=== PATIENT | female | born 1985 | race Caucasian/White ===

== ENCOUNTER 2020-11-01 15:56 | Emergency (ER) | payer MEDICARE, OTHER ==
[~2020-11-01] VITALS: Ht 157.5 cm; Wt 90.9 kg
[~2020-11-01 15:56] MED LIST: BUSP5TAB20 PO; DIPH25 PO; LEVE500T53 PO; LURA40TA2 PO; METF-960 PO
[2020-11-01] MEDS ORDERED: LevETIRAcetam 500 MG TABLET PO ONE (17:15)
[2020-11-01 17:19] LABS: BASOPHILS % (AUTO) 1.1 % (0.0-2.0); EOSINOPHILS % (AUTO) 0.5 % (1.0-6.0); HEMATOCRIT 42.5 % (36-46); HEMOGLOBIN 14.3 g/dL (12.0-16.0); LYMPHOCYTES # (AUTO) 2.9 K/uL (1.0-4.8); LYMPHOCYTES % (AUTO) 34.4 % (22.0-44.0); MEAN CORPUSCULAR HEMOGLOBIN 31.1 pg (26.0-34.0); MEAN CORPUSCULAR HGB CONC 33.8 G/dL (31.0-37.0); MEAN CORPUSCULAR VOLUME 92 fL (80-100); MONOCYTES # (AUTO) 0.4 K/uL (0.1-1.0); MONOCYTES % (AUTO) 5.3 % (2.0-9.0); NEUTROPHILS % (AUTO) 58.7 % (40.0-70.0); PLATELET COUNT (AUTO) 235 K/uL (150-450); RED BLOOD CELL COUNT(AUTO) 4.62 MIL/uL (4.00-5.20); RED CELL DISTRIBUTION WIDTH 12.5 % (11.5-14.5)
[2020-11-01 17:29] LABS: ANION GAP 14 mmol/L (8-16); CALCIUM, TOTAL 8.7 mg/dL (8.8-10.5); CARBON DIOXIDE 20 mmol/L (22-29); CHLORIDE 106 mmol/L (98-107); CREATININE 0.75 mg/dL (0.60-1.30); GLOMERULAR FILTR. RATE CALC > 60 mL/min (>60); GLUCOSE,RANDOM 144 mg/dL (70-110); POTASSIUM 3.1 mmol/L (3.5-5.1); SODIUM SERUM 140 mmol/L (136-145); UREA NITROGEN, BLOOD 11 mg/dL (7-18)
[2020-11-01 17:40] LABS: ALANINE AMINOTRANSFERASE 32 U/L (12-78); ALBUMIN 3.4 g/dL (3.4-5.0); ALKALINE PHOSPHATASE 83 U/L (46-116); ASPARTATE AMINOTRANSFERASE 19 U/L (15-37); BILIRUBIN,TOTAL 0.2 mg/dL (0.1-1.0); HCG,QUANTITATIVE < 1 mIU/mL (0-6); TOTAL PROTEIN, SERUM 6.7 g/dL (6.4-8.2)
[2020-11-01] MEDS ORDERED: POTASSIUM CHLORIDE 20 MEQ ER TABLET PO ONE (18:30)
[2020-11-01 19:10] VITALS: BP 137/78
== END 2020-11-01 19:16 | disposition home or self-care (01) ==
LOC: EMS 15:59
DX: F32.9 Major depressive disorder, single episode, unspecified (principal); F41.9 Anxiety disorder, unspecified; I10 Essential (primary) hypertension; F17.210 Nicotine dependence, cigarettes, uncomplicated; Z79.84 Long term (current) use of oral hypoglycemic drugs; Z88.5 Allergy status to narcotic agent; Z88.8 Allergy status to other drugs, medicaments and biological substances
CPT/HCPCS: 36415; 80053; 84702; 85025; 99284; G0480

== ENCOUNTER 2021-11-05 18:16 | Emergency (ER) | payer MEDICARE, OTHER ==
[~2021-11-05] VITALS: Ht 157.5 cm; Wt 113.6 kg
[~2021-11-05 18:16] MED LIST changes: +LEVE500T20 PO; -LEVE500T53 PO; +METF-1211 PO; -METF-960 PO
[2021-11-05 20:01] LABS: BASOPHILS % (AUTO) 0.3 % (0.0-2.0); EOSINOPHILS % (AUTO) 0.4 % (1.0-6.0); HEMATOCRIT 39.2 % (36-46); HEMOGLOBIN 13.6 g/dL (12.0-16.0); LYMPHOCYTES # (AUTO) 3.2 K/uL (1.0-4.8); LYMPHOCYTES % (AUTO) 37.5 % (22.0-44.0); MEAN CORPUSCULAR HEMOGLOBIN 30.1 pg (26.0-34.0); MEAN CORPUSCULAR HGB CONC 34.6 G/dL (31.0-37.0); MEAN CORPUSCULAR VOLUME 87 fL (80-100); MONOCYTES # (AUTO) 0.5 K/uL (0.1-1.0); MONOCYTES % (AUTO) 6.3 % (2.0-9.0); NEUTROPHILS # (AUTO) 4.7 K/uL (1.8-7.7); NEUTROPHILS % (AUTO) 55.5 % (40.0-70.0); PLATELET COUNT (AUTO) 258 K/uL (150-450); RED BLOOD CELL COUNT(AUTO) 4.51 MIL/uL (4.00-5.20); RED CELL DISTRIBUTION WIDTH 13.1 % (11.5-14.5)
[2021-11-05 20:05] LABS: ANION GAP 11 mmol/L (8-16); CALCIUM, TOTAL 8.9 mg/dL (8.8-10.5); CARBON DIOXIDE 24 mmol/L (22-29); CHLORIDE 107 mmol/L (98-107); GLUCOSE,RANDOM 104 mg/dL (70-110); POTASSIUM 3.3 mmol/L (3.5-5.1); SODIUM SERUM 142 mmol/L (136-145); UREA NITROGEN, BLOOD 15 mg/dL (7-18)
[2021-11-05 20:07] LABS: GLOMERULAR FILTR. RATE CALC > 60 mL/min (>60)
[2021-11-05 20:17] LABS: B-TYPE NATRIURETIC PEPTIDE 8 pg/mL (0-100)
[2021-11-05 20:27] LABS: APPEARANCE,URINE HAZY (CLEAR); BILIRUBIN,URINE NEGATIVE (NEGATIVE); GLUCOSE, URINE (UA) NEGATIVE (NEGATIVE); KETONES,URINE NEGATIVE (NEGATIVE); LEUKOCYTE ESTERASE ,URINE SMALL (NEGATIVE); NITRATE,URINE NEGATIVE (NEGATIVE); OCCULT BLOOD,URINE SMALL (NEGATIVE); PH,URINE 6.5 (5.0-8.0); PROTEIN,URINE TRACE mg/dL (NEGATIVE); SPECIFIC GRAVITIY, URINE 1.021 (1.003-1.030)
[2021-11-05 20:30] LABS: ALANINE AMINOTRANSFERASE 57 U/L (12-78); ALBUMIN 3.9 g/dL (3.4-5.0); ALKALINE PHOSPHATASE 53 U/L (46-116); ASPARTATE AMINOTRANSFERASE 27 U/L (15-37); BILIRUBIN,TOTAL 0.5 mg/dL (0.1-1.0); CREATINE KINASE, TOTAL ONLY 104 U/L (26-192); TOTAL PROTEIN, SERUM 6.8 g/dL (6.4-8.2)
[2021-11-05 20:41] LABS: BACTERIA,URINE Rare /HPF (None Seen); RBC,URINE 0-2 /HPF (0-2); SQUAMOUS EPITHELIAL CELL,UR Many /LPF (None Seen); WBC,URINE 0-2 /HPF (0-5)
[2021-11-05 22:37] LABS: COVID AG,FIA SOURCE NASAL SWAB
[2021-11-05 22:55] VITALS: BP 135/74
== END 2021-11-06 00:21 | disposition home or self-care (01) ==
LOC: EMS 18:27
DX: F41.9 Anxiety disorder, unspecified (principal); R06.00 Dyspnea, unspecified; I10 Essential (primary) hypertension; F31.9 Bipolar disorder, unspecified; F17.210 Nicotine dependence, cigarettes, uncomplicated; Z20.822 Contact with and (suspected) exposure to COVID-19; Z88.1 Allergy status to other antibiotic agents; Z79.84 Long term (current) use of oral hypoglycemic drugs; Z79.899 Other long term (current) drug therapy
CPT/HCPCS: 71045; 80053; 81001; 82550; 82962; 83880; 84484; 84703; 85025; 85379; 93005; 93971; 99285; 36415-L1; 36415-TC

== ENCOUNTER 2022-01-21 02:50 | Inpatient (IN) | payer MEDICARE, MEDICAID ==
[~2022-01-21] VITALS: Ht 165.1 cm; Wt 109.1 kg
[2022-01-21 04:16] LABS: BASOPHILS % (AUTO) 1.1 % (0.0-2.0); EOSINOPHILS % (AUTO) 0.4 % (1.0-6.0); HEMATOCRIT 42.1 % (36-46); HEMOGLOBIN 14.4 g/dL (12.0-16.0); LYMPHOCYTES # (AUTO) 2.2 K/uL (1.0-4.8); LYMPHOCYTES % (AUTO) 22.4 % (22.0-44.0); MEAN CORPUSCULAR HEMOGLOBIN 30.7 pg (26.0-34.0); MEAN CORPUSCULAR HGB CONC 34.3 G/dL (31.0-37.0); MEAN CORPUSCULAR VOLUME 90 fL (80-100); MONOCYTES # (AUTO) 0.6 K/uL (0.1-1.0); MONOCYTES % (AUTO) 6.4 % (2.0-9.0); NEUTROPHILS # (AUTO) 6.8 K/uL (1.8-7.7); NEUTROPHILS % (AUTO) 69.7 % (40.0-70.0); PLATELET COUNT (AUTO) 207 K/uL (150-450); RED CELL DISTRIBUTION WIDTH 13.6 % (11.5-14.5)
[2022-01-21 04:28] LABS: ANION GAP 10 mmol/L (8-16); CALCIUM, TOTAL 9.2 mg/dL (8.8-10.5); CARBON DIOXIDE 26 mmol/L (22-29); CHLORIDE 101 mmol/L (98-107); CREATININE 1.08 mg/dL (0.60-1.30); GLUCOSE,RANDOM 132 mg/dL (70-110); POTASSIUM 3.1 mmol/L (3.5-5.1); SODIUM SERUM 137 mmol/L (136-145); UREA NITROGEN, BLOOD 14 mg/dL (7-18)
[2022-01-21 04:31] LABS: GLOMERULAR FILTR. RATE CALC 57 mL/min (>60)
[2022-01-21 04:39] LABS: ALANINE AMINOTRANSFERASE 167 U/L (12-78); ALBUMIN 4.2 g/dL (3.4-5.0); ALKALINE PHOSPHATASE 61 U/L (46-116); ASPARTATE AMINOTRANSFERASE 74 U/L (15-37); BILIRUBIN,TOTAL 0.8 mg/dL (0.1-1.0); HCG,QUANTITATIVE < 1 mIU/mL (0-6); TOTAL PROTEIN, SERUM 7.2 g/dL (6.4-8.2)
[2022-01-21 04:48] LABS: ACETAMINOPHEN < 2 mcg/mL (10-30); SALICYLATE 1.4 mg/dL (2.8-20.0)
[2022-01-21 04:52] LABS: COVID AG,FIA SOURCE NASAL SWAB
[2022-01-21] MEDS ORDERED: ACET-3385 PO (05:10)
[2022-01-21] MEDS ORDERED: ATOR40TA28 PO (05:10)
[2022-01-21] MEDS ORDERED: LURA40TA2 PO (05:10)
[2022-01-21] MEDS ORDERED: FURO20 PO (05:10)
[2022-01-21] MEDS ORDERED: TOPI100T37 PO (05:10)
[2022-01-21] MEDS ORDERED: POTA8TAB71 PO (05:10)
[2022-01-21] MEDS ORDERED: MAGNESIUM SULFATE 2 GM, MVI, ADULT NO.1 WITH VIT K 10 ML, THIAMINE 100 MG, FOLIC ACID 1... IV ONE ×5 (05:15)
[2022-01-21] MEDS ORDERED: POTASSIUM CHLORIDE 20 MEQ ER TABLET PO ONE (05:15)
[2022-01-21] MEDS ORDERED: ZOLPIDEM TARTRATE 10 MG TABLET PO PRN (07:45)
[2022-01-21] MEDS ORDERED: HALOPERIDOL 5 MG TABLET PO PRN (07:45)
[2022-01-21 09:05] VITALS: BP 134/88
[2022-01-21] MEDS: LORazepam 2 MG TABLET PO PRN (10:25)
[2022-01-21] MEDS: LURASIDONE HCL 40 MG TABLET PO SCH (16:01)
[2022-01-21] MEDS: BusPIRone HCL 5 MG TABLET PO SCH (16:01)
[2022-01-21] MEDS: TOPIRAMATE 100 MG TABLET PO SCH (16:01)
[2022-01-21] MEDS ORDERED: TOPIRAMATE 100 MG TABLET PO SCH (17:00)
[2022-01-21] MEDS: MetFORMIN HCL 500 MG TABLET PO SCH (17:58)
[2022-01-21] MEDS: TRIAMCINOLONE 0.1% 15 GM CREAM TP SCH (17:58)
[2022-01-21] MEDS ORDERED: PETROLATUM,WHITE 28 GM JELLY TP PRN (19:30)
[2022-01-21] MEDS ORDERED: LOPERAMIDE HCL 2 MG CAPSULE PO PRN (19:30)
[2022-01-21] MEDS ORDERED: DOCUSATE SODIUM 100 MG CAPSULE PO PRN (19:30)
[2022-01-21] MEDS ORDERED: CloNIDine HCL 0.1 MG TABLET PO PRN (19:30)
[2022-01-21] MEDS ORDERED: BACITRACIN 28 GM OINTMENT TP PRN (19:30)
[2022-01-21] MEDS ORDERED: IBUPROFEN 600 MG TABLET PO PRN (19:30)
[2022-01-21] MEDS ORDERED: MAG HYDROX/AL HYDROX/SIMETH ES 30 ML SUSPENSION UDCUP PO PRN (19:30)
[2022-01-21] MEDS ORDERED: OMEPRAZOLE 20 MG CAPSULE PO PRN (19:30)
[2022-01-21] MEDS ORDERED: ACETAMINOPHEN 325 MG TABLET PO PRN (19:30)
[2022-01-21] MEDS ORDERED: MAGNESIUM HYDROXIDE SUSPENSION 30 ML UDCUP PO PRN (19:30)
[2022-01-21] MEDS: NYSTATIN 15 GM POWDER BOTTLE TP SCH (19:30)
[2022-01-21] MEDS ORDERED: ONDANSETRON HCL 4 MG TABLET PO PRN (19:30)
[2022-01-21] MEDS ORDERED: BENZOCAINE/MENTHOL LOZENGE PO PRN (19:30)
[2022-01-21] MEDS ORDERED: ALBUTEROL SULFATE HFA 90 MCG/PUFF 8 GM INHALER IH PRN (19:30)
[2022-01-21] MEDS: LevETIRAcetam 500 MG TABLET PO SCH (20:13)
[2022-01-21] MEDS: ATORVASTATIN CALCIUM 40 MG TABLET PO SCH (20:24)
[2022-01-22 05:41] LABS: GLUCOMETER DEV NAME(LOC) 3E.I 2; GLUCOSE,POINT OF CARE 141 MG/DL (70-110)
[2022-01-22] MEDS: MetFORMIN HCL 500 MG TABLET PO SCH ×2 (06:41→16:50)
[2022-01-22 07:07] LABS: ANION GAP 13 mmol/L (8-16); CARBON DIOXIDE 22 mmol/L (22-29); CHLORIDE 105 mmol/L (98-107); CREATININE 0.75 mg/dL (0.60-1.30); GLUCOSE,RANDOM 147 mg/dL (70-110); POTASSIUM 3.8 mmol/L (3.5-5.1); SODIUM SERUM 140 mmol/L (136-145); UREA NITROGEN, BLOOD 15 mg/dL (7-18)
[2022-01-22 07:08] LABS: ALANINE AMINOTRANSFERASE 118 U/L (12-78); ALKALINE PHOSPHATASE 59 U/L (46-116); ASPARTATE AMINOTRANSFERASE 51 U/L (15-37); BILIRUBIN,TOTAL 0.3 mg/dL (0.1-1.0); CALCIUM, TOTAL 8.7 mg/dL (8.8-10.5); TOTAL PROTEIN, SERUM 5.6 g/dL (6.4-8.2)
[2022-01-22 07:10] LABS: GLOMERULAR FILTR. RATE CALC > 60 mL/min (>60)
[2022-01-22 08:00] VITALS: BP 103/56
[2022-01-22] MEDS: NYSTATIN 15 GM POWDER BOTTLE TP SCH ×2 (09:00→17:00)
[2022-01-22] MEDS: TRIAMCINOLONE 0.1% 15 GM CREAM TP SCH ×2 (09:00→17:00)
[2022-01-22] MEDS: FUROSEMIDE 20 MG TABLET PO SCH (10:06)
[2022-01-22] MEDS: POTASSIUM CHLORIDE 8 MEQ ER TABLET PO SCH (10:06)
[2022-01-22] MEDS: TOPIRAMATE 100 MG TABLET PO SCH ×2 (10:06→16:50)
[2022-01-22] MEDS: LevETIRAcetam 500 MG TABLET PO SCH ×2 (10:06→16:49)
[2022-01-22] MEDS: BusPIRone HCL 5 MG TABLET PO SCH ×2 (10:06→16:49)
[2022-01-22 16:00] VITALS: BP 121/78
[2022-01-22] MEDS: LURASIDONE HCL 40 MG TABLET PO SCH (16:50)
[2022-01-22 16:56] LABS: GLUCOMETER DEV NAME(LOC) 3EX.2; GLUCOSE,POINT OF CARE 116 MG/DL (70-110)
[2022-01-22] MEDS: ATORVASTATIN CALCIUM 40 MG TABLET PO SCH (20:14)
[2022-01-23 05:36] LABS: GLUCOMETER DEV NAME(LOC) 3E.I 2; GLUCOSE,POINT OF CARE 134 MG/DL (70-110)
[2022-01-23] MEDS: MetFORMIN HCL 500 MG TABLET PO SCH ×2 (06:48→16:36)
[2022-01-23 08:00] VITALS: BP 111/60
[2022-01-23] MEDS: LevETIRAcetam 500 MG TABLET PO SCH ×2 (08:48→16:37)
[2022-01-23] MEDS: POTASSIUM CHLORIDE 8 MEQ ER TABLET PO SCH (08:48)
[2022-01-23] MEDS: TOPIRAMATE 100 MG TABLET PO SCH ×2 (08:48→16:36)
[2022-01-23] MEDS: FUROSEMIDE 20 MG TABLET PO SCH (08:48)
[2022-01-23] MEDS: BusPIRone HCL 5 MG TABLET PO SCH ×2 (08:49→16:36)
[2022-01-23] MEDS: LORazepam 2 MG TABLET PO PRN ×2 (11:04→20:57)
[2022-01-23] MEDS: TRIAMCINOLONE 0.1% 15 GM CREAM TP SCH ×2 (11:06→18:04)
[2022-01-23] MEDS: NYSTATIN 15 GM POWDER BOTTLE TP SCH ×2 (11:06→18:04)
[2022-01-23 16:15] VITALS: BP 133/94
[2022-01-23 16:21] LABS: GLUCOMETER DEV NAME(LOC) 3E.I 2; GLUCOSE,POINT OF CARE 124 MG/DL (70-110)
[2022-01-23] MEDS: LURASIDONE HCL 40 MG TABLET PO SCH (18:04)
[2022-01-23] MEDS: ATORVASTATIN CALCIUM 40 MG TABLET PO SCH (20:57)
[2022-01-24 05:57] LABS: GLUCOMETER DEV NAME(LOC) 3E.I 2; GLUCOSE,POINT OF CARE 195 MG/DL (70-110)
[2022-01-24] MEDS: MetFORMIN HCL 500 MG TABLET PO SCH ×2 (06:35→16:34)
[2022-01-24 07:59] LABS: CHOL/HDL RATIO 2.5 (3.9-5.7)
[2022-01-24 08:15] VITALS: BP 140/85
[2022-01-24] MEDS: BusPIRone HCL 5 MG TABLET PO SCH ×2 (09:34→16:33)
[2022-01-24] MEDS: TOPIRAMATE 100 MG TABLET PO SCH ×2 (09:34→16:34)
[2022-01-24] MEDS: FUROSEMIDE 20 MG TABLET PO SCH (09:34)
[2022-01-24] MEDS: LevETIRAcetam 500 MG TABLET PO SCH ×2 (09:34→16:33)
[2022-01-24] MEDS: POTASSIUM CHLORIDE 8 MEQ ER TABLET PO SCH (09:34)
[2022-01-24] MEDS: NYSTATIN 15 GM POWDER BOTTLE TP SCH ×2 (09:35→16:34)
[2022-01-24] MEDS: TRIAMCINOLONE 0.1% 15 GM CREAM TP SCH ×2 (09:35→16:34)
[2022-01-24] MEDS ORDERED: LURA40TA2 PO (16:09)
[2022-01-24] MEDS ORDERED: BUSP5TAB20 PO (16:09)
[2022-01-24 16:31] VITALS: BP 126/89
[2022-01-24] MEDS: LURASIDONE HCL 40 MG TABLET PO SCH (16:34)
[2022-01-24 16:50] LABS: GLUCOMETER DEV NAME(LOC) 3E.I 2; GLUCOSE,POINT OF CARE 115 MG/DL (70-110)
== END 2022-01-24 17:22 | disposition home or self-care (01) | DRG 885 ==
LOC: EMS 02:51 → 3EI 05:32 → 3EX 08:45
PROVIDERS: ADMIT Psychiatry & Neurology Psychiatry; ATTEND Psychiatry & Neurology Psychiatry
DX: F31.30 Bipolar disorder, current episode depressed, mild or moderate severity, unspecified (principal); Z68.41 Body mass index [BMI] 40.0-44.9, adult; E11.9 Type 2 diabetes mellitus without complications; E78.5 Hyperlipidemia, unspecified; F43.10 Post-traumatic stress disorder, unspecified; I10 Essential (primary) hypertension; T50.902A Poisoning by unspecified drugs, medicaments and biological substances, intentional self-harm, initial encounter; Z87.891 Personal history of nicotine dependence; E66.9 Obesity, unspecified; E87.6 Hypokalemia; K59.00 Constipation, unspecified; G47.00 Insomnia, unspecified; F41.9 Anxiety disorder, unspecified; K21.9 Gastro-esophageal reflux disease without esophagitis; Z20.822 Contact with and (suspected) exposure to COVID-19; Z79.899 Other long term (current) drug therapy; Z88.8 Allergy status to other drugs, medicaments and biological substances
CPT/HCPCS: 80053; 80061; 82962; 83735; 84702; 85025; 93005; 99285; G0378; G0480; G0481; G0482; J3411; J3475; J3490; J7030

== ENCOUNTER 2023-05-29 22:21 | Emergency (ER) | payer MEDICARE, OTHER ==
[~2023-05-29] VITALS: Ht 157.5 cm; Wt 115.0 kg
[~2023-05-29 22:21] MED LIST changes: -DIPH25 PO; -LEVE500T20 PO; -METF-1211 PO
[2023-05-29 23:33] VITALS: TEMP 98.4
[2023-05-30] MEDS ORDERED: ONDANSETRON HCL 4 MG/2 ML VIAL IVP ONE (00:15)
[2023-05-30] MEDS ORDERED: KETOROLAC TROMETHAMINE 30 MG/ML VIAL IVP ONE (00:15)
[2023-05-30] MEDS ORDERED: SODIUM CHLORIDE 0.9% 1,000 ML IV ONE (00:15)
[2023-05-30] MEDS ORDERED: KETOROLAC TROMETHAMINE 15 MG/ML VIAL IVP ONE (00:15)
[2023-05-30] MEDS ORDERED: MAG HYDROX/ALUMINUM HYD/SIMETH 30 ML SUSPENSION UDCUP PO ONE (00:15)
[2023-05-30] MEDS ORDERED: FAMOTIDINE 20 MG/2 ML VIAL IVP ONE (00:15)
[2023-05-30 00:52] LABS: COVID AG,FIA SOURCE NASAL SWAB
[2023-05-30 00:59] LABS: APPEARANCE,URINE HAZY (CLEAR); BILIRUBIN,URINE NEGATIVE (NEGATIVE); COLOR,URINE YELLOW (YELLOW); GLUCOSE, URINE (UA) 70-100 mg/dL (NEGATIVE); KETONES,URINE TRACE mg/dL (NEGATIVE); LEUKOCYTE ESTERASE ,URINE MODERATE (NEGATIVE); NITRATE,URINE POSITIVE (NEGATIVE); OCCULT BLOOD,URINE NEGATIVE (NEGATIVE); PROTEIN,URINE 100-200,SEE CONFIRM mg/dL (NEGATIVE); SPECIFIC GRAVITIY, URINE 1.034 (1.003-1.030)
[2023-05-30 01:14] LABS: SARS-COV2 (COVID) ANTIGEN,FIA Negative (Negative)
[2023-05-30 01:15] LABS: INFLUENZA TYPE A NEGATIVE FOR TYPE A (NEGATIVE); INFLUENZA TYPE B NEGATIVE FOR TYPE B (NEGATIVE)
[2023-05-30 01:21] LABS: SULFOSALICYLIC ACID,URINE 1+ (Negative)
[2023-05-30 01:22] LABS: BACTERIA,URINE Many /HPF (None Seen); RBC,URINE None Seen /HPF (0-2); SQUAMOUS EPITHELIAL CELL,UR Many /LPF (None Seen)
[2023-05-30] MEDS ORDERED: NITROFURANTOIN MONOHYD/M-CRYST 100 MG CAPSULE [MACROBID] PO ONE (02:00)
[2023-05-30 02:10] LABS: BASOPHILS % (AUTO) 1.1 % (0.0-2.0); EOSINOPHILS % (AUTO) 0.4 % (1.0-6.0); HEMATOCRIT 44.2 % (36-46); HEMOGLOBIN 15.4 g/dL (12.0-16.0); LYMPHOCYTES # (AUTO) 3.2 K/uL (1.0-4.8); LYMPHOCYTES % (AUTO) 26.5 % (22.0-44.0); MEAN CORPUSCULAR HEMOGLOBIN 30.6 pg (26.0-34.0); MEAN CORPUSCULAR HGB CONC 34.9 G/dL (31.0-37.0); MEAN CORPUSCULAR VOLUME 88 fL (80-100); MONOCYTES # (AUTO) 0.7 K/uL (0.1-1.0); MONOCYTES % (AUTO) 6.2 % (2.0-9.0); NEUTROPHILS # (AUTO) 7.9 K/uL (1.8-7.7); NEUTROPHILS % (AUTO) 65.8 % (40.0-70.0); PLATELET COUNT (AUTO) 228 K/uL (150-450); RED BLOOD CELL COUNT(AUTO) 5.05 MIL/uL (4.00-5.20); RED CELL DISTRIBUTION WIDTH 13.4 % (11.5-14.5)
[2023-05-30 02:19] LABS: ANION GAP 9 mmol/L (8-16); CALCIUM, TOTAL 9.5 mg/dL (8.8-10.5); CARBON DIOXIDE 27 mmol/L (22-29); CHLORIDE 97 mmol/L (98-107); CREATININE 0.74 mg/dL (0.60-1.30); GLOMERULAR FILTR. RATE CALC > 60 mL/min (>60); GLUCOSE,RANDOM 170 mg/dL (70-110); POTASSIUM 3.8 mmol/L (3.5-5.1); SODIUM SERUM 133 mmol/L (136-145); UREA NITROGEN, BLOOD 13 mg/dL (7-18)
[2023-05-30 02:24] LABS: ALANINE AMINOTRANSFERASE 77 U/L (12-78); ALBUMIN 4.1 g/dL (3.4-5.0); ALKALINE PHOSPHATASE 65 U/L (46-116); ASPARTATE AMINOTRANSFERASE 44 U/L (15-37); BILIRUBIN,TOTAL 0.8 mg/dL (0.1-1.0); LIPASE 34 U/L (16-77); TOTAL PROTEIN, SERUM 7.2 g/dL (6.4-8.2)
[2023-05-30 02:42] VITALS: BP 129/90; PULSE 89; RESP 18
[2023-05-30] MEDS ORDERED: ONDA-104 PO (02:53)
[2023-05-30] MEDS ORDERED: NITR-75 PO (02:53)
[2023-05-30] MEDS ORDERED: IBUP-1492 PO (02:53)
[2023-05-31] MEDS ORDERED: SEMA1PEN3 SQ (17:39)
[2023-05-31] MEDS ORDERED: METF-1211 PO (17:39)
[2023-05-31] MEDS ORDERED: INSU100I75 SQ (17:39)
[2023-05-31] MEDS ORDERED: ATOR10TA PO (17:39)
[2023-05-31] MEDS ORDERED: ALBU18HF12 IH (18:49)
[2023-05-31] MEDS ORDERED: FLUT10.67 IH (18:49)
[2023-05-31] MEDS ORDERED: ARIP882S2 IM (18:49)
[2023-05-31] MEDS ORDERED: IBUP-1493 PO (21:22)
[2023-05-31] MEDS ORDERED: CYCL-397 PO (21:22)
== END 2023-05-30 04:17 | disposition home or self-care (01) ==
LOC: EMS 22:23
DX: N39.0 Urinary tract infection, site not specified (principal); R11.2 Nausea with vomiting, unspecified; E11.9 Type 2 diabetes mellitus without complications; F15.90 Other stimulant use, unspecified, uncomplicated; Z98.890 Other specified postprocedural states; Z20.822 Contact with and (suspected) exposure to COVID-19
CPT/HCPCS: 99284; 87426; 80053; 81001; 83690; 84703; 85025; 87804; 36415; 87086; 87186; 96374; 96375; 96361; J3490; J1885; J2405; J7030; 81002

== ENCOUNTER 2023-05-31 17:13 | Emergency (ER) | payer MEDICARE, OTHER ==
[~2023-05-31] VITALS: Ht 165.1 cm; Wt 90.9 kg
[~2023-05-31 17:13] MED LIST changes: +IBUP-1492 PO; +NITR-75 PO; +ONDA-104 PO
[2023-05-31] MEDS ORDERED: ATOR10TA PO (17:39)
[2023-05-31] MEDS ORDERED: SEMA1PEN3 SQ (17:39)
[2023-05-31] MEDS ORDERED: INSU100I75 SQ (17:39)
[2023-05-31] MEDS ORDERED: METF-1211 PO (17:39)
[2023-05-31] MEDS ORDERED: ALBU18HF12 IH (18:49)
[2023-05-31] MEDS ORDERED: ARIP882S2 IM (18:49)
[2023-05-31] MEDS ORDERED: FLUT10.67 IH (18:49)
[2023-05-31] MEDS ORDERED: CYCLOBENZAPRINE HCL 10 MG TABLET PO ONE (19:30)
[2023-05-31 20:14] VITALS: BP 124/80; PULSE 93; RESP 18; TEMP 98.5
[2023-05-31] MEDS ORDERED: IBUPROFEN 800 MG TABLET PO ONE (21:00)
[2023-05-31] MEDS ORDERED: IBUP-1493 PO (21:22)
[2023-05-31] MEDS ORDERED: CYCL-397 PO (21:22)
== END 2023-05-31 21:35 | disposition home or self-care (01) ==
LOC: EMS 17:18
DX: S93.401A Sprain of unspecified ligament of right ankle, initial encounter (principal); M54.50 Low back pain, unspecified; F15.90 Other stimulant use, unspecified, uncomplicated; E11.9 Type 2 diabetes mellitus without complications; I10 Essential (primary) hypertension; Z98.890 Other specified postprocedural states; Z88.8 Allergy status to other drugs, medicaments and biological substances; W18.39XA Other fall on same level, initial encounter; Y93.89 Activity, other specified; Y92.89 Other specified places as the place of occurrence of the external cause; Y99.8 Other external cause status
CPT/HCPCS: 72040; 72072; 72100; 82962; 99284